=== PATIENT | male | born 1940 | race Asian ===

== ENCOUNTER 2017-03-23 08:01 | Observation (INO) | payer OTHER ==
[2017-03-20 12:04] LABS: HEMOGLOBIN 13.9 g/dL (13.7-18.0); WHITE BLOOD COUNT 6.1 x10^3/uL (3.4-10)
[2017-03-20 12:20] LABS: ASPARTATE AMINO TRANSFERASE 31 U/L (15-37); BLOOD UREA NITROGEN 12 mg/dL (7-18)
[~2017-03-23] VITALS: Ht 165.1 cm; Wt 81.4 kg
[~2017-03-23 08:01] MED LIST: ASPI-496 PO; ASPI-658 PO; AZIT500T2 PO; CLOP75TA52 PO; HYDR-3240 PO; KRIL1CAP21 PO; LOSA1TAB19 PO; MEGA RED JOINT CARE PO; METO-93 PO; METO50TA4 PO; MULT-26 PO; MULT-658 PO; SIMV80TA PO; SIMV80TA3 PO
[2017-03-23] MEDS ORDERED: LACTATED RINGERS 1,000 ML IV SCH (08:14)
[2017-03-23] MEDS ORDERED: LIDOCAINE/PF 1%, 30ML ONE (09:45)
[2017-03-23] MEDS ORDERED: THROMBIN 20,000 UNIT VIAL TP ONE (09:45)
[2017-03-23] MEDS ORDERED: HEPARIN 1,000 UNITS/ML, 10ML ONE (09:45)
[2017-03-23] MEDS ORDERED: BUPIVACAINE/PF 0.5% ONE (09:45)
[2017-03-23] MEDS ORDERED: EPINEPHRINE 1 MG/ML, 1ML ONE (09:45)
[2017-03-23] MEDS ORDERED: PROTAMINE SULFATE 10 MG/ML, 5ML ONE (09:45)
[2017-03-23] MEDS ORDERED: PAPAVERINE 30 MG/ML, 2ML ONE (09:45)
[2017-03-23] MEDS ORDERED: BACITRACIN 50,000 UNIT ONE (09:46)
[2017-03-23] MEDS ORDERED: FENTANYL PF 100 MCG/2ML ONE (10:17)
[2017-03-23] MEDS ORDERED: CEFAZOLIN 1,000 MG ONE (10:19)
[2017-03-23] MEDS ORDERED: NEOSTIGMINE 1 MG/ML, 10ML ONE (10:19)
[2017-03-23] MEDS ORDERED: METOPROLOL 1 MG/ML, 5ML ONE (10:19)
[2017-03-23] MEDS ORDERED: ROCURONIUM 10 MG/ML ONE (10:19)
[2017-03-23] MEDS ORDERED: PROPOFOL 10 MG/ML, 20ML ONE (10:19)
[2017-03-23] MEDS ORDERED: GLYCOPYRROLATE 0.2MG/1ML, 5ML ONE (10:19)
[2017-03-23] MEDS ORDERED: SUCCINYLCHOLINE 20 MG/ML, 10ML ONE (10:19)
[2017-03-23] MEDS ORDERED: ONDANSETRON 2MG/ML, 2ML ONE (10:19)
[2017-03-23] MEDS ORDERED: BUPIVACAINE/PF-EPI 0.5% 1:200K INFIL ONE (10:50)
[2017-03-23] MEDS ORDERED: hydrALAzine 20 MG/ML, 1ML IV PRN (11:00)
[2017-03-23] MEDS ORDERED: FENTANYL PF 100 MCG/2ML IV PRN (11:00)
[2017-03-23] MEDS ORDERED: MIDAZOLAM 1 MG/ML, 2ML IV PRN (11:00)
[2017-03-23] MEDS ORDERED: LABETALOL 5MG/ML, 20ML IV PRN (11:00)
[2017-03-23] MEDS ORDERED: DIAZEPAM 5 MG/ML, 2ML IVPush PRN (11:00)
[2017-03-23] MEDS ORDERED: PROMETHAZINE 25 MG/ML, 1ML IV PRN (11:00)
[2017-03-23] MEDS ORDERED: LORazepam 2 MG/ML, 1ML IVPush PRN (11:00)
[2017-03-23] MEDS ORDERED: ONDANSETRON 2MG/ML, 2ML IVPush PRN (11:00)
[2017-03-23] MEDS ORDERED: ACETAMINOPHEN 325 MG TABLET PO PRN ×2 (11:00→13:30)
[2017-03-23] MEDS ORDERED: OXYcodone 5 MG/5 ML ORAL.SOL UDC PO PRN (11:00)
[2017-03-23] MEDS ORDERED: HYDROmorphone 1 MG/ML, 1ML IV PRN (11:00)
[2017-03-23] MEDS ORDERED: hydrALAzine 20 MG/ML, 1ML ONE (13:03)
[2017-03-23] MEDS ORDERED: ACETAMINOPHEN 650 MG/20.3 ML UDC ONE (13:03)
[2017-03-23] MEDS ORDERED: OXYcodone 5 MG/5 ML ORAL.SOL UDC ONE (13:04)
[2017-03-23] MEDS ORDERED: LABETALOL 5MG/ML 40ML VIAL IVPush PRN (13:30)
[2017-03-23] MEDS ORDERED: HYDROcodone/APAP 5/325 TABLET PO PRN (13:30)
[2017-03-23] MEDS ORDERED: ENOXAPARIN 40 MG/0.4 ML SQ SCH (13:30)
[2017-03-23 16:00] VITALS: BP 158/51
[2017-03-23 20:36] VITALS: BP 103/43
[2017-03-23] MEDS ORDERED: SIMVASTATIN 40 MG TABLET PO SCH (21:00)
[2017-03-23] MEDS: LACTATED RINGERS 1,000 ML IV SCH (22:50)
[2017-03-24 03:23] VITALS: BP 108/54
[2017-03-24 06:59] VITALS: BP 123/68
[2017-03-24] MEDS ORDERED: METOPROLOL SUCCINATE 50 MG TAB.ER.24H PO SCH (09:00)
[2017-03-24] MEDS ORDERED: ASPIRIN 81 MG TABLET EC PO SCH (09:00)
[2017-03-24] MEDS: LACTATED RINGERS 1,000 ML IV SCH (11:00)
[2017-03-24] MEDS ORDERED: HYDR-3240 PO (11:09)
[2017-03-24 13:04] VITALS: BP 153/79
== END 2017-03-24 13:40 | disposition home or self-care (01) ==
LOC: INTOOBSV 08:01 → ORIP 08:01 → EDSTATUS 10:00 → 4NOR 15:58
DX: I65.22 Occlusion and stenosis of left carotid artery (principal); I70.213 Atherosclerosis of native arteries of extremities with intermittent claudication, bilateral legs; I25.10 Atherosclerotic heart disease of native coronary artery without angina pectoris; E78.2 Mixed hyperlipidemia; I10 Essential (primary) hypertension; I77.1 Stricture of artery; Z72.89 Other problems related to lifestyle; Z87.891 Personal history of nicotine dependence
CPT/HCPCS: 35301; 36415; 71020; 80053; 85025; 93005; C1729; C1760; C1781; G0378; J0171; J0330; J0360; J0690; J1644; J2405; J2704; J2710; J2720; J3010; J3490; J7120; J2440

== ENCOUNTER → 2017-12-04 | Outpatient (CLI) | payer OTHER ==
[~2017-12-04] MED LIST changes: +REGADENOSON 0.4 MG/5 ML SYRINGE ONE
== END | disposition home or self-care (01) ==
LOC: CFH 08:17
PROVIDERS: ATTEND Internal Medicine Cardiovascular Disease
DX: I21.19 ST elevation (STEMI) myocardial infarction involving other coronary artery of inferior wall (principal); I25.9 Chronic ischemic heart disease, unspecified; I25.5 Ischemic cardiomyopathy; I10 Essential (primary) hypertension; I25.10 Atherosclerotic heart disease of native coronary artery without angina pectoris; I44.1 Atrioventricular block, second degree; Z95.1 Presence of aortocoronary bypass graft
CPT/HCPCS: 78452; 93017; A9502; J2785

== ENCOUNTER → 2017-12-17 | Outpatient (CLI) | payer OTHER ==
[~2017-12-17] MED LIST changes: -REGADENOSON 0.4 MG/5 ML SYRINGE ONE
== END | disposition home or self-care (01) ==
LOC: CFH 15:51
PROVIDERS: ATTEND Internal Medicine Cardiovascular Disease
DX: I08.3 Combined rheumatic disorders of mitral, aortic and tricuspid valves (principal); I10 Essential (primary) hypertension; I42.9 Cardiomyopathy, unspecified; I25.10 Atherosclerotic heart disease of native coronary artery without angina pectoris; I70.293 Other atherosclerosis of native arteries of extremities, bilateral legs; E78.00 Pure hypercholesterolemia, unspecified; Z79.01 Long term (current) use of anticoagulants
CPT/HCPCS: 71046; 93306

== ENCOUNTER 2017-12-20 09:33 | Observation (INO) | payer OTHER ==
[~2017-12-20] VITALS: Ht 165.1 cm; Wt 66.4 kg
[~2017-12-20 09:33] MED LIST changes: -SIMV80TA3 PO; +SIMV80TA7 PO
[2017-12-20 10:03] VITALS: BP 184/78
[2017-12-20 10:36] LABS: BASOPHILS # (AUTO) 0.02 x10^3/uL (0-0.1); BASOPHILS % (AUTO) 0 % (0-1); EOSINOPHILS # (AUTO) 0.16 x10^3/uL (0-0.4); EOSINOPHILS % (AUTO) 3 % (1-7); LYMPHOCYTES # (AUTO) 1.85 x10^3/uL (1-3.4); LYMPHOCYTES % (AUTO) 34 % (22-44); MD NO; MEAN CORPUSCULAR HEMOGLOBIN 22.9 pg (27.5-34.5); MEAN CORPUSCULAR HGB CONC 32.3 g/dL (33.2-36.2); MEAN CORPUSCULAR VOLUME 70.9 fL (81-97); MEAN PLATELET VOLUME 9.8 fL (7.4-10.4); MONOCYTES # (AUTO) 0.65 x10^3/uL (0.2-0.8); MONOCYTES % (AUTO) 12 % (2-9); NEUTROPHILS # (AUTO) 2.72 x10^3/uL (1.8-6.8); NEUTROPHILS % (AUTO) 50 % (42-75); PLATELET COUNT 289 x10^3/uL (130-400); RED BLOOD COUNT 5.67 x10^6/uL (4.38-5.82); RED CELL DISTRIBUTION WIDTH 14.8 % (9.4-14.8)
[2017-12-20 10:45] LABS: ANION GAP 8 mmol/L (5-15); CALCIUM 8.4 mg/dL (8.5-10.1); CHLORIDE 107 mmol/L (98-107)
[2017-12-20 10:46] LABS: CREATININE 1.15 mg/dL (0.7-1.3)
[2017-12-20] MEDS ORDERED: FENTANYL PF 100 MCG/2ML ONE (12:33)
[2017-12-20] MEDS ORDERED: MIDAZOLAM 1 MG/ML, 5ML ONE (12:33)
[2017-12-20] MEDS ORDERED: LIDOCAINE-MPF 2%, 2ML ONE (12:34)
[2017-12-20] MEDS ORDERED: VERAPAMIL 2.5 MG/ML, 2ML ONE ×2 (12:34→12:51)
[2017-12-20] MEDS ORDERED: TICAGRELOR 90 MG TABLET ONE (12:34)
[2017-12-20] MEDS ORDERED: HEPARIN 1,000 UNITS/ML, 10ML ONE (12:34)
[2017-12-20] MEDS ORDERED: NITROGLYCERIN 5 MG/ML, 10ML ONE (12:34)
[2017-12-20] MEDS ORDERED: BIVALIRUDIN 250 MG ONE (12:34)
[2017-12-20] MEDS ORDERED: LIDOCAINE/PF 1%, 30ML ONE (12:51)
[2017-12-20] MEDS ORDERED: NITROGLYCERIN 0.4 MG BOTTLE (25 TABS) SL PRN (14:30)
[2017-12-20] MEDS ORDERED: NITROGLYCERIN 0.4 MG/SPRAY SL PRN (14:30)
[2017-12-20 14:38] VITALS: BP 158/58
[2017-12-20 19:56] VITALS: BP 169/68
[2017-12-20] MEDS ORDERED: SIMVASTATIN 40 MG TABLET PO SCH (21:00)
[2017-12-20 21:28] VITALS: BP 148/63
[2017-12-21 02:20] VITALS: BP 136/86
[2017-12-21 05:39] LABS: ALBUMIN 3.4 g/dL (3.4-5.0); ANION GAP 7 mmol/L (5-15); CALCIUM 8.4 mg/dL (8.5-10.1); CHLORIDE 106 mmol/L (98-107); CREATININE 0.98 mg/dL (0.7-1.3)
[2017-12-21 07:47] VITALS: BP 165/79
[2017-12-21] MEDS ORDERED: CLOPIDOGREL 75 MG TABLET PO SCH (09:00)
[2017-12-21] MEDS ORDERED: LOSARTAN 50MG TABLET PO SCH (09:00)
[2017-12-21] MEDS ORDERED: MULTIVITAMIN 1 TABLET PO SCH (09:00)
[2017-12-21] MEDS ORDERED: ISOSORBIDE MONONITRATE ER 30 MG TABLET PO SCH (09:00)
[2017-12-21] MEDS ORDERED: MEGA RED JOINT CARE PO SCH (09:00)
[2017-12-21] MEDS ORDERED: HYDROCHLOROTHIAZIDE 12.5 MG CAPSULE PO SCH (09:00)
[2017-12-21] MEDS ORDERED: ASPIRIN 81 MG TABLET EC PO SCH (09:00)
== END 2017-12-21 11:04 | disposition home or self-care (01) ==
LOC: CACL 09:33 → ORIP 14:12 → 5SO 14:38 → DCLOUNGE 12-21 10:15
PROVIDERS: ADMIT Internal Medicine Cardiovascular Disease; ATTEND Internal Medicine Cardiovascular Disease
DX: I25.119 Atherosclerotic heart disease of native coronary artery with unspecified angina pectoris (principal); I87.1 Compression of vein; I73.9 Peripheral vascular disease, unspecified; I10 Essential (primary) hypertension; E78.5 Hyperlipidemia, unspecified; Z95.5 Presence of coronary angioplasty implant and graft
CPT/HCPCS: 36415; 80048; 82040; 85014; 85018; 85025; 93005; 93459; 99156; 99157; C1725; C1760; C1769; C1874; C1887; C1894; C9600; G0378; J0583; J2250; J3010; J3490; Q9967; J1644

== ENCOUNTER → 2019-06-06 | Outpatient (CLI) | payer MEDICARE ==
[~2019-06-06] MED LIST changes: +AMINOPHYLLINE 25 MG/ML, 10ML ONE; +ATOR-2 PO; +HYDR-3342 PO; +HYDR25TA6 PO; +LISI-170 PO; +LOSA1TAB25 PO; +METO25TA91 PO; +POTA20TA6 PO; +REGADENOSON 0.4 MG/5 ML SYRINGE ONE; +SIMV80TA18 PO; -SIMV80TA7 PO
== END | disposition home or self-care (01) ==
LOC: CFH 08:34
PROVIDERS: ATTEND Registered Nurse
DX: I25.9 Chronic ischemic heart disease, unspecified (principal); I25.119 Atherosclerotic heart disease of native coronary artery with unspecified angina pectoris
CPT/HCPCS: 78452; 93017; A9502; J0280; J2785

== ENCOUNTER 2020-09-10 09:03 | Outpatient (CLI) | payer MEDICARE ==
[~2020-09-10 09:03] MED LIST changes: -AMINOPHYLLINE 25 MG/ML, 10ML ONE; +HYDR-2214 PO; -HYDR-3240 PO; -REGADENOSON 0.4 MG/5 ML SYRINGE ONE
[2020-09-10] MEDS ORDERED: LISI-170 PO (10:12)
[2020-09-10] MEDS ORDERED: METO50TA82 PO (10:12)
[2020-09-10] MEDS ORDERED: HYDR25TA6 PO (10:12)
[2020-09-10] MEDS ORDERED: HYDR-3342 PO (10:12)
[2020-09-10] MEDS ORDERED: DOXA1TAB2 PO (10:12)
[2020-09-10 10:36] LABS: BASOPHILS % (AUTO) 0 % (0-1); EOSINOPHILS % (AUTO) 3 % (1-7); LYMPHOCYTES % (AUTO) 39 % (22-44); MEAN CORPUSCULAR HEMOGLOBIN 21.8 pg (27.5-34.5); MEAN CORPUSCULAR HGB CONC 31.6 g/dL (33.2-36.2); MEAN PLATELET VOLUME 8.5 fL (7.4-10.4); MONOCYTES % (AUTO) 13 % (2-9); NEUTROPHILS % (AUTO) 45 % (42-75); PLATELET COUNT 282 x10^3/uL (130-400); RED BLOOD COUNT 5.22 x10^6/uL (4.38-5.82); RED CELL DISTRIBUTION WIDTH 15.3 % (9.4-14.8)
[2020-09-10 10:42] LABS: ALANINE AMINOTRANSFERASE 36 U/L (12-78); ANION GAP 4 mmol/L (5-15); CALCIUM 8.6 mg/dL (8.5-10.1); CHLORIDE 103 mmol/L (98-107); CREATININE 1.46 mg/dL (0.7-1.3)
[2020-09-10 10:45] LABS: ALKALINE PHOSPHATASE 67 U/L (45-117); BILIRUBIN,TOTAL 0.5 mg/dL (0.2-1.0); TOTAL PROTEIN 7.7 g/dL (6.4-8.2)
[2020-09-10 10:47] LABS: MD NO
== END 2020-09-10 23:59 | disposition home or self-care (01) ==
LOC: STAR 09:03
PROVIDERS: ATTEND Surgery
DX: Z01.812 Encounter for preprocedural laboratory examination (principal); Z20.822 Contact with and (suspected) exposure to COVID-19; Z95.0 Presence of cardiac pacemaker; I44.1 Atrioventricular block, second degree
CPT/HCPCS: 36415; 71046; 80053; 85025; 93005; U0003

== ENCOUNTER 2020-09-16 08:10 | Inpatient (IN) | payer MEDICARE ==
[~2020-09-16] VITALS: Ht 162.6 cm; Wt 66.5 kg
[~2020-09-16 08:10] MED LIST changes: +DOXA1TAB2 PO; +HEPARIN 1,000 UNITS/ML, 10ML ONE; +HEPARIN 5,000 UNITS/ML, 1ML ONE; +LIDOCAINE/PF 1%, 30ML ONE; +METO50TA82 PO; +POTA-143 PO; -POTA20TA6 PO; +PROTAMINE SULFATE 10 MG/ML, 25ML ONE; +THROMBIN 20,000 UNIT VIAL TP ONE
[2020-09-16] MEDS ORDERED: CHLORHEXIDINE 15 ML UDC PO ONE (09:00)
[2020-09-16] MEDS ORDERED: LACTATED RINGERS 1,000 ML IV SCH (09:00)
[2020-09-16] MEDS ORDERED: FENTANYL PF 250 MCG/5ML ONE (10:13)
[2020-09-16] MEDS ORDERED: ASPIRIN 81 MG TABLET EC ONE (10:51)
[2020-09-16] MEDS ORDERED: ASPIRIN 325 MG TABLET PO ONE (11:00)
[2020-09-16] MEDS ORDERED: HEPARIN 5,000 UNITS/ML, 1ML SQ ONE (11:27)
[2020-09-16] MEDS ORDERED: LIDOCAINE 1%, 20ML INFIL ONE (11:27)
[2020-09-16] MEDS ORDERED: MEPERIDINE/PF 25MG/0.5ML IVPush PRN (11:30)
[2020-09-16] MEDS ORDERED: OXYcodone 5 MG/5 ML ORAL.SOL UDC PO PRN (11:30)
[2020-09-16] MEDS ORDERED: KETOROLAC 30 MG/1 ML IV PRN (11:30)
[2020-09-16] MEDS ORDERED: LABETALOL 5MG/ML, 20ML IV PRN (11:30)
[2020-09-16] MEDS ORDERED: FENTANYL PF 100 MCG/2ML IV PRN (11:30)
[2020-09-16] MEDS ORDERED: PROMETHAZINE 25 MG/ML, 1ML IV PRN (11:30)
[2020-09-16] MEDS ORDERED: DIAZEPAM 5 MG/ML, 2ML IVPush PRN (11:30)
[2020-09-16] MEDS ORDERED: ACETAMINOPHEN 325 MG TABLET PO PRN (11:30)
[2020-09-16] MEDS ORDERED: hydrALAzine 20 MG/ML, 1ML IV PRN (11:30)
[2020-09-16] MEDS ORDERED: HYDROmorphone 2 MG/ML, 1ML IVPush PRN (11:30)
[2020-09-16] MEDS ORDERED: ALBUTEROL SULFATE 2.5 MG/3 ML NPPB PRN (11:30)
[2020-09-16] MEDS ORDERED: THROMBIN 20,000 UNIT VIAL TP ONE (13:02)
[2020-09-16] MEDS ORDERED: DEXAMETHASONE 4 MG/ML, 1ML ONE (13:05)
[2020-09-16] MEDS ORDERED: GLYCOPYRROLATE 0.2MG/1ML, 5ML ONE (13:05)
[2020-09-16] MEDS ORDERED: CEFAZOLIN 1,000 MG ONE (13:05)
[2020-09-16] MEDS ORDERED: PROPOFOL 10 MG/ML, 20ML ONE (13:05)
[2020-09-16] MEDS ORDERED: SUCCINYLCHOLINE 20 MG/ML, 10ML ONE (13:05)
[2020-09-16] MEDS ORDERED: ROCURONIUM 10MG/ML,5ML ONE (13:05)
[2020-09-16] MEDS ORDERED: NEOSTIGMINE 1 MG/ML, 10ML ONE (13:05)
[2020-09-16] MEDS ORDERED: ONDANSETRON 2MG/ML, 2ML ONE (13:05)
[2020-09-16] MEDS ORDERED: EPINEPHRINE 1 MG/ML, 1ML ONE (13:15)
[2020-09-16] MEDS ORDERED: PHENYLEPHRINE 50 MG in SODIUM CHLORIDE 0.9% 245 ML IV PRN (16:00)
[2020-09-16] MEDS: LACTATED RINGERS 1,000 ML IV SCH (18:44)
[2020-09-16] MEDS ORDERED: HYDROcodone/APAP 5/325 TABLET PO PRN (19:00)
[2020-09-16] MEDS ORDERED: ONDANSETRON 2MG/ML, 2ML IV PRN (19:00)
[2020-09-16] MEDS ORDERED: PHENYLEPHRINE 50 MG in SODIUM CHLORIDE 0.9% 245 ML IV SCH (19:00)
[2020-09-16] MEDS: ATORVASTATIN 80 MG TABLET PO SCH (21:17)
[2020-09-16] MEDS: DOXAZOSIN 1MG TABLET PO SCH (21:17)
[2020-09-16] MEDS: LISINOPRIL 20 MG TABLET PO SCH (21:19)
[2020-09-17 03:15] VITALS: BP 117/46
[2020-09-17 03:30] VITALS: BP 121/46
[2020-09-17 03:45] VITALS: BP 121/44
[2020-09-17 04:03] VITALS: BP 125/53
[2020-09-17] MEDS: LACTATED RINGERS 1,000 ML IV SCH ×3 (05:00→22:46)
[2020-09-17] MEDS: HEPARIN 5,000 UNITS/ML, 1ML SQ SCH ×3 (05:58→22:46)
[2020-09-17] MEDS: ASPIRIN 81 MG TABLET EC PO SCH (05:58)
[2020-09-17] MEDS: DOXAZOSIN 1MG TABLET PO SCH ×2 (07:09→19:39)
[2020-09-17] MEDS: LISINOPRIL 20 MG TABLET PO SCH ×2 (07:10→19:39)
[2020-09-17] MEDS: HYDROCHLOROTHIAZIDE 25 MG TABLET PO SCH (07:10)
[2020-09-17] MEDS: METOPROLOL TARTRATE 50 MG TAB PO SCH (07:10)
[2020-09-17] MEDS: MULTIVITAMIN 1 TABLET PO SCH (07:43)
[2020-09-17] MEDS: CLOPIDOGREL 75 MG TABLET PO SCH (07:43)
[2020-09-17] MEDS: [UNRECOGNIZED DRUG - OTHER] HOMEMEDPO SCH (09:00)
[2020-09-17] MEDS: ATORVASTATIN 80 MG TABLET PO SCH (20:36)
[2020-09-18] MEDS: ASPIRIN 81 MG TABLET EC PO SCH (06:32)
[2020-09-18] MEDS: HEPARIN 5,000 UNITS/ML, 1ML SQ SCH (06:32)
[2020-09-18] MEDS: [UNRECOGNIZED DRUG - OTHER] HOMEMEDPO SCH (08:28)
[2020-09-18] MEDS: LACTATED RINGERS 1,000 ML IV SCH (08:30)
[2020-09-18] MEDS: HYDROCHLOROTHIAZIDE 25 MG TABLET PO SCH (08:31)
[2020-09-18] MEDS: LISINOPRIL 20 MG TABLET PO SCH (08:31)
[2020-09-18] MEDS: METOPROLOL TARTRATE 50 MG TAB PO SCH (08:31)
[2020-09-18] MEDS: DOXAZOSIN 1MG TABLET PO SCH (08:37)
[2020-09-18] MEDS: CLOPIDOGREL 75 MG TABLET PO SCH (08:37)
[2020-09-18] MEDS: MULTIVITAMIN 1 TABLET PO SCH (08:37)
== END 2020-09-18 15:10 | disposition home or self-care (01) | DRG 38 ==
LOC: ORIP 08:10 → CCU 17:28
PROVIDERS: ADMIT Surgery; ATTEND Surgery
PROC: 03CM0ZZ Extirpation of Matter from Right External Carotid Artery, Open Approach (ICD-10-PCS; 2020-09-16)
PROC: 03UM0KZ Supplement Right External Carotid Artery with Nonautologous Tissue Substitute, Open Approach (ICD-10-PCS; 2020-09-16)
PROC: 03UK0KZ Supplement Right Internal Carotid Artery with Nonautologous Tissue Substitute, Open Approach (ICD-10-PCS; 2020-09-16)
PROC: 03CK0ZZ Extirpation of Matter from Right Internal Carotid Artery, Open Approach (ICD-10-PCS; principal; 2020-09-16 10:00)
DX: I65.21 Occlusion and stenosis of right carotid artery (principal); I74.09 Other arterial embolism and thrombosis of abdominal aorta; I10 Essential (primary) hypertension; I25.10 Atherosclerotic heart disease of native coronary artery without angina pectoris; I73.9 Peripheral vascular disease, unspecified; I95.9 Hypotension, unspecified; Z88.0 Allergy status to penicillin
CPT/HCPCS: 36415; 85347; 86850; 86900; 88304; 88311; 93005; G0378; J0171; J0690; J1100; J1644; J2405; J2704; J2710; J2720; J3010; C1768; J0330; J2370; J7050; J7120